=== PATIENT | female | born 1970 | race Hispanic/Latino ===

== ENCOUNTER 2018-12-14 15:55 | Inpatient (IN) | payer MEDICAID, OTHER ==
[~2018-12-14] VITALS: Ht 152.4 cm; Wt 76.4 kg
[2018-12-14 16:27] LABS: APPEARANCE,URINE Clear (CLEAR); BILIRUBIN,URINE Negative (NEGATIVE); COLOR,URINE Yellow (YELLOW); GLUCOSE, URINE (UA) Negative (NEGATIVE); KETONES,URINE Negative (NEGATIVE); LEUKOCYTE ESTERASE ,URINE Negative (NEGATIVE); NITRATE,URINE Negative (NEGATIVE); OCCULT BLOOD,URINE Small (NEGATIVE); PROTEIN,URINE POS 1+ mg/dL (NEGATIVE)
[2018-12-14 16:27] LABS: BASOPHILS % (AUTO) 0.4 % (0.0-5.0); EOSINOPHILS % (AUTO) 0.8 % (0.0-8.0); HEMATOCRIT 41.7 % (36-48); LYMPHOCYTES % (AUTO) 11.2 % (21.0-51.0); MEAN CORPUSCULAR HEMOGLOBIN 29.9 pg (27.0-33.0); MEAN CORPUSCULAR HGB CONC 34.2 g/dL (32.0-36.0); MEAN CORPUSCULAR VOLUME 87.5 fL (79-99); MONOCYTES % (AUTO) 6.2 % (3.0-13.0); NEUTROPHILS % (AUTO) 81.4 % (40.0-77.0); PLATELET COUNT (AUTO) 309 K/uL (130-400); RED BLOOD CELL COUNT(AUTO) 4.76 MIL/uL (4.00-5.50); WHITE BLOOD COUNT (AUTO) 14.9 K/uL (4.8-10.8)
[2018-12-14 16:31] LABS: HCG,QUAL RESULT NEGATIVE (NEGATIVE)
[2018-12-14 16:41] LABS: CREATININE 1.1 mg/dL (0.5-1.5); POTASSIUM 3.8 mmol/L (3.5-5.1)
[2018-12-14 16:46] LABS: ALBUMIN 3.7 g/dL (3.5-5.0); BILIRUBIN,TOTAL 0.5 mg/dL (0.2-1.0); TOTAL PROTEIN, SERUM 8.2 g/dL (6.0-8.3)
[2018-12-14 17:07] LABS: FINE GRANULAR CASTS,URINE 0-2 /LPF (None Seen); MUCUS,URINE Few LPF (None Seen)
[2018-12-14 17:08] LABS: AMORPHOUS SEDIMENT,UR Few /LPF (None Seen)
[2018-12-14 17:11] LABS: BACTERIA,URINE Few /HPF (None Seen); WBC,URINE 0-1 /HPF (0-1)
[2018-12-14] MEDS ORDERED: KETOROLAC TROMETHAMINE 30MG/ML ONE (17:40)
[2018-12-14] MEDS ORDERED: LACTATED RINGERS 1000ML 1,000 ML IV ONE (19:00)
[2018-12-14] MEDS ORDERED: ZOSYN 3.375GM+NS 50ML 50 ML IV ONE (19:00)
[2018-12-14] MEDS: LACTATED RINGERS 1000ML 1,000 ML IV SCH (19:15)
[2018-12-14 19:35] VITALS: BP 144/82
[2018-12-14] MEDS: MORPHINE SULFATE 4 MG/1ML SYG IVP PRN (21:34)
[2018-12-14] MEDS: ZOSYN 3.375GM+NS 50ML 50 ML IV SCH (21:39)
--- NOTE | 2018-12-14 23:00 | NUR ---
MD BREWER CALLED PT CRYING REPORTING SEVERE ANXIETY. NOTIFIED, NO NEW ORDERS WERE GIVEN. WILL PT TOMORROW. PT INFORMED, SAID SHE WOULD BE OK. COMFORT TEACHINGS PROVIDED. Addendum: 12/15/18 at 0572 by CECE HARRELL RN RN Amended: Links added.
[2018-12-14 23:33] VITALS: BP 155/97
[2018-12-15] MEDS: ONDANSETRON HCL 4 MG/2 ML VIAL IVP PRN ×3 (01:50→20:20)
[2018-12-15] MEDS: MORPHINE SULFATE 4 MG/1ML SYG IVP PRN ×5 (01:52→20:21)
[2018-12-15] MEDS: LACTATED RINGERS 1000ML 1,000 ML IV SCH ×2 (03:15→12:36)
[2018-12-15 03:49] VITALS: BP 131/86
[2018-12-15 08:00] VITALS: BP 147/98
[2018-12-15] MEDS: ZOSYN 3.375GM+NS 50ML 50 ML IV SCH ×2 (09:31→18:24)
--- NOTE | 2018-12-15 11:21 | NUR ---
DC PLAN VISITED WITH PATIENT. PATIENT LIVES WITH SON. INDEPENDENT ABLE TO PERFORM ADL'S. PATIENT HAS NO SERVICES OR DME'S. FEELS SAFE TO RETURN HOME. GAVE LOW INCOME CLINIC INFO. Addendum: 12/15/18 at 1123 by ANABEL SHAH RN CM Amended: Links added.
[2018-12-15 12:00] VITALS: BP 126/80
--- NOTE | 2018-12-15 13:33 | NUR ---
ROBINSON PAR[place] FOR DR RATLIFF CAME IN TO SEE THE PATIENT. NO ADDITIONAL INTERVENTION AT THIS TIME.
[2018-12-15 16:00] VITALS: BP 13/84
[2018-12-15 20:37] VITALS: BP 155/94
[2018-12-16] VITALS (24 sets, daily range): BP systolic 119–175; BP diastolic 78–99
[2018-12-16] MEDS: MORPHINE SULFATE 4 MG/1ML SYG IVP PRN ×4 (01:28→20:23)
[2018-12-16] MEDS: ZOSYN 3.375GM+NS 50ML 50 ML IV SCH ×3 (01:28→17:16)
--- NOTE | 2018-12-16 08:00 | NUR ---
AM SHIFT ASSESSMENT. NPO FOR SURGERY TODAY.
--- NOTE | 2018-12-16 11:08 | NUR ---
TO HOLDING AREA NOW.
[2018-12-16] MEDS: LACTATED RINGERS 1000ML 1,000 ML IV SCH ×3 (11:14→19:15)
[2018-12-16] MEDS ORDERED: GLYCOPYRROLATE 1 MG/5 ML SYRINGE ONE (11:36)
[2018-12-16] MEDS ORDERED: DEXAMETHASONE SOD PHOSPHATE 10MG/ML 1ML VIAL ONE (11:36)
[2018-12-16] MEDS ORDERED: ONDANSETRON HCL 4 MG/2 ML VIAL ONE (11:36)
[2018-12-16] MEDS ORDERED: SUCCINYLCHOLINE 200MG/10ML SYR ONE (11:36)
[2018-12-16] MEDS ORDERED: MIDAZOLAM HCL 1 MG/ML 2ML VIAL ONE (11:36)
[2018-12-16] MEDS ORDERED: LIDOCAINE PF 2% 5ML ABBOJECT ONE (11:36)
[2018-12-16] MEDS ORDERED: PROPOFOL 10 MG/ML 20ML VIAL IV ONE (11:36)
[2018-12-16] MEDS ORDERED: NEOSTIGMINE 5MG/5ML SYR IV ONE (11:36)
[2018-12-16] MEDS ORDERED: ROCURONIUM 10MG/1ML SYR 10 MG/ML ML ONE (11:37)
[2018-12-16] MEDS ORDERED: FENTANYL CITRATE PF 50 MCG/1 ML 2ML VIAL ONE ×2 (11:37→13:05)
[2018-12-16] MEDS ORDERED: OCTYL 2-CYANOACRYLATE 1 EACH TP ONE (12:16)
[2018-12-16] MEDS ORDERED: BUPIVACAINE/PF 0.5% 30ML VIAL ONE (12:17)
--- NOTE | 2018-12-16 14:35 | NUR ---
POST OP REPORT TAKEN BY ANNEMARIE JOHNSON RN. PT CONNECTED TO IVF, RL AT 125/HR, BAND AIDS IN PLACE TO ABD WITH WILIAM TO RT SIDE AND TO HEMA COMPRESSION. DENIES PAIN AT THIS TIME. ASST TO BR FOR A VOID NOW.
--- NOTE | 2018-12-16 17:00 | NUR ---
MEDICATED FOR PAIN TO SURGICAL SITE. (ABD).
--- NOTE | 2018-12-16 18:00 | NUR ---
WILIAM EMPTIED FOR 80 ML BLOOD. RETURNED TO HEMA COMPRESSION. PT. STATES SHE IS MUCH MORE COMFORTABLE NOW.
--- NOTE | 2018-12-16 18:00 | NUR ---
IVF DOCUMENTED DO NOT REFLECT WHAT WAS GIVEN IN OR Addendum: 12/16/18 at 2001 by ALANA JOHNSON RN RN Amended: Links added.
--- NOTE | 2018-12-16 20:20 | NUR ---
NOTE PATIENT ENCOURAGED TO TURN, COUGH AND DEEP BREATH WELL FREQUENT WALKING IN ROOM OR IN HALLWAY. SHE ACKNOWLEDGED UNDERSTANDING AND SAYS SHE WILL DO IT LATER TONIGHT.
[2018-12-16] MEDS: ACETAMINOPHEN-CODEINE 300/30MG TAB PO PRN (23:02)
[2018-12-17] VITALS: BP 133/83
[2018-12-17] MEDS: MORPHINE SULFATE 4 MG/1ML SYG IVP PRN ×5 (00:20→20:46)
[2018-12-17] MEDS: LACTATED RINGERS 1000ML 1,000 ML IV SCH (00:24)
[2018-12-17] MEDS: ZOSYN 3.375GM+NS 50ML 50 ML IV SCH ×3 (02:30→17:16)
[2018-12-17 03:59] VITALS: BP 106/69
[2018-12-17 05:08] LABS: HEMATOCRIT 32.7 % (36-48); MEAN CORPUSCULAR HEMOGLOBIN 30.2 pg (27.0-33.0); MEAN CORPUSCULAR HGB CONC 34.2 g/dL (32.0-36.0); MEAN CORPUSCULAR VOLUME 88.1 fL (79-99); PLATELET COUNT (AUTO) 244 K/uL (130-400); RED BLOOD CELL COUNT(AUTO) 3.72 MIL/uL (4.00-5.50); RED CELL DISTRIBUTION WIDTH 12.8 % (11.0-15.5)
[2018-12-17 05:31] LABS: ALBUMIN 2.3 g/dL (3.5-5.0); BILIRUBIN,TOTAL 1.1 mg/dL (0.2-1.0); CREATININE 0.9 mg/dL (0.5-1.5); POTASSIUM 3.7 mmol/L (3.5-5.1); TOTAL PROTEIN, SERUM 6.3 g/dL (6.0-8.3)
--- NOTE | 2018-12-17 06:00 | NUR ---
NOTE PATIENT UP WALKING IN HALLWAY. TOLERATING WELL.
[2018-12-17 08:00] VITALS: BP 102/61
--- NOTE | 2018-12-17 10:00 | NUR ---
WALKING IN HALLWAY, IVF STILL INFUSING, DRAIN IN PLACE TO RT. SIDE ABD. NO PAIN AT THIS TIME.
--- NOTE | 2018-12-17 11:30 | NUR ---
STILL ON LIQ. DIET BUT FEELS HUNGRY AND THINKS CAN TOLERATE SOLIDS, WILL LET DR. BREWER KNOW.
[2018-12-17 11:48] VITALS: BP 111/77
[2018-12-17 16:00] VITALS: BP 112/63
--- NOTE | 2018-12-17 17:59 | NUR ---
CALLED DR. BREWER WITH UPDATE, ORDERS RECEIVED.
[2018-12-17 19:50] VITALS: BP 122/78
[2018-12-18 00:11] VITALS: BP 138/83
[2018-12-18] MEDS: MORPHINE SULFATE 4 MG/1ML SYG IVP PRN ×2 (00:35→08:29)
[2018-12-18] MEDS: ZOSYN 3.375GM+NS 50ML 50 ML IV SCH ×2 (02:18→09:25)
[2018-12-18 04:06] VITALS: BP 107/71
[2018-12-18 05:11] LABS: MEAN CORPUSCULAR HEMOGLOBIN 29.5 pg (27.0-33.0); MEAN CORPUSCULAR HGB CONC 33.3 g/dL (32.0-36.0); MEAN CORPUSCULAR VOLUME 88.6 fL (79-99); PLATELET COUNT (AUTO) 287 K/uL (130-400); WHITE BLOOD COUNT (AUTO) 10.7 K/uL (4.8-10.8)
[2018-12-18 05:19] LABS: BAND NEUTROPHILS % (MANUAL) 8 % (0-2); EOSINOPHILS % (MANUAL) 4 % (1-6); LYMPHOCYTES % (MANUAL) 16 % (22-44); MAN.DIFF COMMENT-IMPRESSION MANUAL DIFFERENTIAL; MONOCYTES % (MANUAL) 7 % (2-9); PLATELET MORPHOLOGY COMMENT ADEQUATE; REACTIVE LYMPHOCYTES 3 % (0-0); SEGMENTED NEUTROPHILS % 62 % (40-70)
[2018-12-18 05:40] LABS: ALBUMIN 2.3 g/dL (3.5-5.0); BILIRUBIN,TOTAL 0.7 mg/dL (0.2-1.0); CREATININE 0.9 mg/dL (0.5-1.5); POTASSIUM 3.7 mmol/L (3.5-5.1); TOTAL PROTEIN, SERUM 6.5 g/dL (6.0-8.3)
[2018-12-18 08:00] VITALS: BP 112/73
--- NOTE | 2018-12-18 10:58 | NUR ---
IV SITE PUFFY AND TENDER. DISCONTINUED, WILL NOT RESTART IS A POSSIBLE DISCHARGE. WILL WAIT UNTIL SURGEON MAKES HIS ROUNDS.
[2018-12-18 12:00] VITALS: BP 119/75
[2018-12-18] MEDS: ACETAMINOPHEN-CODEINE 300/30MG TAB PO PRN (15:06)
--- NOTE | 2018-12-18 15:45 | NUR ---
DR. BREWER IN TO SEE PT. NOW. DISCHARGE ORDERS NOW IN PLACE.
--- NOTE | 2018-12-18 16:00 | NUR ---
WILIAM DRAIN RT. ABD. EMPTIED OF IO ML BLOODY TINGED SECRETIONS AND THEN REMOVED. HAD 1 STAPLE AND 1 SUTURE HOLDING IT IN PLACE, BAND AIDS REMOVED AND SM. SURGICAL PUNCTURES LEFT OPEN TO AIR PER DR. BREWER. SALINE ALSO REMOVED AND PT.PREPARED FOR DISCHARGE.
--- NOTE | 2018-12-18 17:20 | NUR ---
DISCHARGED NOW USING TEACH BACK. VERBALIZED UNDERSTANDING OF ALL INST. GIVEN PLUS RX FOR TYLENOL #3 AND LEVFLOXIN. WILL CALL OFFICE IN AM TO [facility]. 1 WEEK APPT. TO BE SEEN. NO QUESTIONS OR COMPLAINTS AT TIME OF DC.
== END 2018-12-18 17:12 | disposition home or self-care (01) | DRG 419 ==
LOC: EDH 15:55 → EDHIP 15:56 → 3AH 19:25
PROVIDERS: ADMIT Surgery; ATTEND Surgery
PROC: 0FT44ZZ Resection of Gallbladder, Percutaneous Endoscopic Approach (ICD-10-PCS; principal; 2018-12-16 11:56)
DX: K80.00 Calculus of gallbladder with acute cholecystitis without obstruction (principal); I10 Essential (primary) hypertension; K82.A1 Gangrene of gallbladder in cholecystitis
CPT/HCPCS: 36415; 76705; 80053; 81001; 81025; 83690; 84484; 85025; 85027; 93005; G0378; J0330; J1100; J1885; J2001; J2250; J2270; J2405; J2543; J2704; J2710; J3010; J3490; J7120